=== PATIENT | male | born 1995 | race African-American/Black ===

== ENCOUNTER 2020-02-16 19:57 | Emergency (ER) | payer OTHER, MEDICAID, SELFPAY ==
[2020-02-16] VITALS (10 sets, daily range): BP systolic 119–140; BP diastolic 72–87; PULSE 57–72; RESP 8–25; TEMP 36.6; O2SAT 96–100
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
[2020-02-16 20:45] LABS: Abs Immature Grans 0.02 10^3/uL (0.0-0.06); Absolute Basophil Count 0.02 10^3/uL (0.0-0.2); Absolute Eosinophil Count 0.19 10^3/uL (0.0-0.7); Absolute Lymphocyte Count 2.03 10^3/uL (1.2-3.4); Absolute Monocyte Count 0.62 10^3/uL (0.1-0.8); Absolute Neutrophil Count 3.09 10^3/uL (1.2-6.7); Basophils % 0.3; Eosinophils % 3.2; HCT 39.6 % (40.0-50.0); HGB 12.8 g/dL (13.5-17.5); Immature Grans % 0.3; MCH 26.8 pg (27.0-33.0); MCHC 32.3 % (32.0-36.0); MPV 9.3 fL (8.0-11.0); Monocytes % 10.4; Neutrophils % 51.8; Nucleated RBC 0 %; Platelet Count 230 10^3/uL (130-400); RBC 4.77 10^6/uL (4.36-5.78); RDW 13.1 % (11.8-14.1); WBC 5.97 10^3/uL (4.4-10.8)
--- NOTE | 2020-02-16 20:45 | RT.EKG_ITS ---
APPROVED REPORT Exam: Resting ECG Patient Location: E HR:60 bpm ECG Measurements Heart Rate 60 AXIS AR 155 P 55 QRSd 80 QRS 70 QT 430 T 58 QTc 429 Conclusion Sinus rhythm...normal P axis, V-rate 60- 99 ST elev, probable normal early repol pattern...ST elevation, age<55 Normal [place] Normal QT I have reviewed and interpreted ECG and agree with software generated interpretation.
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
[2020-02-16 21:32] LABS: Magnesium 1.8 mg/dL (1.8-2.4)
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
[2020-02-16 22:01] LABS: ALT 18 U/L (16-63); AST 24 U/L (15-37); Albumin 3.9 g/dL (3.4-5.0); Alkaline Phosphatase 83 U/L (46-116); Anion Gap 6.2 mmol/L (3-11); BUN 13 mg/dL (7-18); Bilirubin, Total 0.5 mg/dL (0.2-1.0); CO2 27.8 mmol/L (21.0-32.0); CREATININE 1.15 mg/dL (0.70-1.30); Calcium 8.5 mg/dL (8.5-10.1); Chloride 103 mmol/L (98-107); Glucose 83 mg/dL (74-106); Potassium 3.9 mmol/L (3.5-5.1); Sodium 137 mmol/L (136-145); Total Protein 7.4 g/dL (6.4-8.2)
[2020-02-16 22:02] LABS: ETHANOL BLOOD < 3.0 mg/dL (<3)
[2020-02-16 22:11] LABS: Bilirubin Negative (Negative); Blood Trace-intact (Negative); Clarity Clear (Clear); Glucose Negative (Negative); Ketones Negative (Negative); Leukocyte Esterase Negative (Negative); Nitrite Negative (Negative); Specific Gravity 1.025 (1.005-1.025); Urobilinogen 0.2 EU/dL (Up TO 0.2); pH 6.5 (5-8)
[2020-02-16 22:22] LABS: *AMPHETAMINES SCREEN URINE Negative (Negative); *BARBITURATES SCREEN URINE Negative (Negative); *BENZODIAZEPINES SCREEN URINE Negative (Negative); Bacteria Negative HPF (Negative); C & S Indicated? No; Cannabinoids THC Negative (Negative); Casts Negative LPF (Negative); Cocaine Screen,Urine Negative (Negative); Crystals Negative HPF (Negative); Epithelial Cells Negative HPF (Negative); METHADONE URINE SCREEN Negative (Negative); Mucus Negative (Negative); OPIATES URINE SCREEN Negative (Negative); Other Cells Negative (Negative); WBC Negative HPF (0-5)
[2020-02-16 22:31] LABS: Tricyclic Antidepressants Negative (Negative)
--- NOTE | 2020-02-16 23:08 | NUR.NOTE ---
Nursing Note: COPY FOR REFERAL GIVEN TO CARE MANAGEMENT TO GET APPT WITH DR JONAS FOR NEW ONSET SEIZURES
== END 2020-02-16 23:25 | disposition home or self-care (01) ==
LOC: ER 21:54
PROVIDERS: Emergency Provider Emergency Medicine; PCP Family Medicine
DX: S70.12XA Contusion of left thigh, initial encounter (principal); V43.52XA Car driver injured in collision with other type car in traffic accident, initial encounter; R56.9 Unspecified convulsions
CPT/HCPCS: 73552; 74177; 80053; 80307; 93005; 99285; 70450; 71260; 72125; 80320; 81003; 81015; 83735; 84443; 85025; 93010; 99284

== ENCOUNTER 2020-02-22 05:07 | Outpatient (CLI) | payer MEDICAID, SELFPAY ==
--- NOTE | 2020-02-25 08:47 | PDOC.EEG_ITS ---
Neurology EEG EEG: [facility] Department of Neurology EEG REPORT Date of Recordin02/22/20 Interpreting Physician: Dr. Yolanda Mcleod PCP/Referring Provider: Jeffy Maldonado NP Reason for study: Ms. Martinez is a 24 year-old man with first ever seizure. Current Medications: Home Medications Medication Instructions Recorded Confirmed Type duloxetine 20 mg PO DAILY #0 cap 02/16/20 02/21/20 Rx lorazepam [Ativan] 0.5 mg PO DAILY PRN #15 tab 02/16/20 02/21/20 Rx METHODS: A 21 channel digitized electroencephalogram was performed in the [facility] Clinical Neurophysiology Laboratory. The 10/20 international system of electrode placement was used and bipolar and referential electrode montages were recorded. In addition to EEG the patient was monitored for EKG and lateral/vertical eye movements. Activation procedures of photic stimulation and hyperventilation were performed if applicable. Video was used during activation procedures and during events where applicable. The duration of the recording was 30 minutes. DESCRIPTION OF EEG: The patient was noted to be awake, drowsy, and asleep during the recording. During maximal wakefulness a 10-Hz posterior background rhythm was present which was well-modulated, symmetrical, reactive to eye opening, and of moderate voltage. With eye opening the background activity changed to a low voltage mixture of alpha, beta, and occasional theta range frequencies. Faster frequencies were present in the bilateral anterior head regions. There was a normal anterior-posterior voltage gradient. During drowsiness, there was attenuation of the posterior dominant background rhythm and vertex waves. Stage II sleep was present with symmetrical sleep spindles, K-complexes, and vertex waves. Activating Procedures: Photic stimulation was performed which produced a symmetrical posterior driving response at various flash frequencies. Hyperventilation was performed with moderate effort and produced no physiological slowing of the background. EKG: EKG revealed normal sinus rhythm. INTERPRETATION: This EEG is normal during the awake and sleep states as well as during photic stimulation and hyperventilation. PRIOR EEG: none CLINICAL CORRELATION: No focal regions of cerebral dysfunction or epileptiform activity was present. Epilepsy remains a clinical diagnosis and a normal EEG does not rule out epilepsy. Clinical correlation is advised. Yolanda Mcleod MD
== END 2020-02-22 05:27 ==
PROVIDERS: PCP Family Medicine; Visit Provider Psychiatry & Neurology Neurology
DX: R40.4 Transient alteration of awareness (principal); R68.89 Other general symptoms and signs; G40.89 Other seizures
CPT/HCPCS: 95819

== ENCOUNTER 2020-02-29 03:55 | Outpatient (CLI) | payer MEDICAID, SELFPAY ==
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
== END 2020-02-29 04:15 ==
PROVIDERS: PCP Family Medicine; Visit Provider Psychiatry & Neurology Neurology
DX: R56.9 Unspecified convulsions (principal)
CPT/HCPCS: 70551